=== PATIENT | male | born 1955 | race Caucasian/White ===

== ENCOUNTER 2018-12-30 11:43 | Emergency (ER) | payer MEDICAID ==
[~2018-12-30] VITALS: Ht 177.8 cm; Wt 113.6 kg
[2018-12-30] MEDS ORDERED: KETOROLAC TROMETHAMINE 30 MG/ML VIAL IM ONE (13:00)
[2018-12-30 14:07] VITALS: BP 125/72
== END 2018-12-30 14:35 | disposition home or self-care (01) ==
LOC: EMS 11:47
DX: G89.29 Other chronic pain (principal); M79.604 Pain in right leg; M79.605 Pain in left leg; Z91.018 Allergy to other foods
CPT/HCPCS: 36415; 85379; 93970; 96372; 99284; J1885